=== PATIENT | female | born 2000 | race African-American/Black ===

== ENCOUNTER 2025-08-08 11:05 | Outpatient (CLI) | payer BC | END 2025-08-08 11:06 | disposition home or self-care (01) | LOC: ULT 11:05 | PROVIDERS: ATTEND Family Medicine | DX: N91.1 Secondary amenorrhea (principal); R93.41 Abnormal radiologic findings on diagnostic imaging of renal pelvis, ureter, or bladder; N83.201 Unspecified ovarian cyst, right side; N83.00 Follicular cyst of ovary, unspecified side | CPT/HCPCS: 76856 ==